=== PATIENT | female | born 1935 | race Caucasian/White ===

== ENCOUNTER 2017-06-24 09:19 | Inpatient (IN) | payer MEDICARE, BC ==
[2017-06-24] MEDS ORDERED: Sodium Chloride 0.9% 10 ML Syringe FLUSH PRN (09:34)
[2017-06-24] MEDS ORDERED: Sodium Chloride 0.9% 500 ML IV ONE ×2 (09:34→13:19)
[2017-06-24] MEDS ORDERED: Ondansetron 4 MG/2 ML SDV IVPUSH ONE (09:43)
--- NOTE | 2017-06-24 09:59 | EDM.PDOC ---
ED HPI GENERAL MEDICAL PROBLEM - General Chief Complaint: Gastrointestinal Problem Stated Complaint: [facility] Time Seen by Provider: 06/24/17 09:31 Source of Information: Reports: Patient, RN Notes Reviewed - History of Present Illness INITIAL COMMENTS - FREE TEXT/NARRATIVE: 82-year-old female comes in with generalized weakness, dizziness, diarrhea for the past 2 or 3 days, feeling very dehydrated. This apparently came on fairly suddenly 2 or 3 days ago. Couple of days prior to that she developed blotchy type hives of her lower extremities. She had been started on tramadol a few days prior to that for neck discomfort. The Tramadol was stopped. It was thought that maybe the diarrhea was secondary to the tramadol reaction as well but the diarrhea has not stopped. Every Time she eats or drinks she has more watery diarrhea. A family member states that this morning she had about 3 episodes of diarrhea just the past hour. SHe has no appetite. She has not been vomiting. No other family members are ill at this time. Chest pain or difficulty breathing. No fever or chills. - Related Data Allergies Allergy/AdvReac Type Severity Reaction Status Date / Time hydrochlorothiazide Allergy Itching Verified 06/24/17 09:27 Home Meds: Home Meds Levothyroxine [Synthroid] 100 mcg PO DAILY 06/24/17 [History] Lisinopril 20 mg PO DAILY 06/24/17 [History] Past Medical History HEENT History: Reports: Impaired Vision Cardiovascular History: Reports: Hypertension Endocrine/Metabolic History: Reports: Hypothyroidism Social & Family History - Tobacco Use Smoking Status *Q: Former Smoker Used Tobacco, but Quit: Yes Month Tobacco Last Used: 20 years ago - Caffeine Use Caffeine Use: Reports: Coffee - Recreational Drug Use Recreational Drug Use: No ED ROS GENERAL - Review of Systems Review Of Systems: See Below Constitutional: Denies: Fever, Chills, Diaphoresis HEENT: Reports: No Symptoms Respiratory: Reports: Shortness of Breath (Exertional) Cardiovascular: Reports: Lightheadedness (Especially when standing), Palpitations (Mild). Denies: Chest Pain GI/Abdominal: Reports: Abdominal Pain (Occasional cramps), Diarrhea (Frequent watery), Nausea. Denies: Vomiting Musculoskeletal: Reports: No Symptoms Skin: Reports: No Symptoms Neurological: Reports: Dizziness, Difficulty Walking (Due to weakness when standing), Weakness (Generalized). Denies: Numbness, Tingling ED EXAM, GI/ABD - Physical Exam Exam: See Below General Appearance: Alert, No Apparent Distress Eyes: Bilateral: Normal Appearance Throat/Mouth: Other (Oral mucosa is dry) Head: No: Facial Swelling Neck: Supple, Full Range of Motion Respiratory/Chest: No Respiratory Distress, Lungs Clear, Normal Breath Sounds Cardiovascular: Irregularly Irregular GI/Abdominal Exam: Soft, Non-Tender. No: Guarding Extremities: Normal Inspection. No: Pedal Edema, Leg Pain Neurological: Alert, No Motor/Sensory Deficits, Other (Patient does show signs of short term memory difficulty) Skin Exam: Warm, Dry, Normal Color EKG INTERPRETATION EKG Date: 06/24/17 Rhythm: A-Fib Rate (Beats/Min): 110 [place]: Normal QRS: Normal Course - Vital Signs Last Recorded V/S: Last Vital Signs Temp 96.9 F 06/24/17 09:24 Pulse 97 06/24/17 09:24 Resp 16 06/24/17 09:24 BP 89/50 L 06/24/17 09:24 Pulse Ox 97 06/24/17 09:24 - Orders/Labs/Meds Orders: Active Orders 24 hr Category Date Time Status EKG 12 Lead [EKG Documentation Completion] [RC] STAT Care 06/24/17 09:30 Active Peripheral IV Care [RC] . DIRECTED Care 06/24/17 09:35 Active Abdomen 2V AP Flat Upright [CR] Stat Exams 06/24/17 12:28 Taken Sodium Chloride 0.9% [Normal Saline] 500 ml Med 06/24/17 13:19 Ordered IV .BOLUS Sodium Chloride 0.9% [Saline Flush] Med 06/24/17 09:34 Active 10 ml FLUSH ASDIRECTED PRN Peripheral IV Insertion Adult [OM.PC] Stat Oth 06/24/17 09:34 Ordered Medication Orders Sodium Chloride (Normal Saline) 500 mls @ 999 mls/hr IV .BOLUS ONE Stop: 06/24/17 13:49 Sodium Chloride (Saline Flush) 10 ml FLUSH ASDIRECTED PRN PRN Reason: Keep Vein Open Last Admin: 06/24/17 09:56 Dose: 10 ml Labs: Laboratory Tests 06/24/17 06/24/17 06/24/17 Range/Units 09:50 09:50 09:50 WBC 14.26 H (3.98-10.04) K/mm3 RBC 5.44 H (3.98-5.22) M/mm3 Hgb 15.9 H (11.2-15.7) gm/L Hct 45.7 H (34.1-44.9) % MCV 84.0 (79.4-94.8) fl MCH 29.2 (25.6-32.2) pg MCHC 34.8 (32.2-35.5) g/dl RDW Std Deviation 49.5 H (36.4-46.3) fL Plt Count 141 L (182-369) K/mm3 MPV 11.4 (9.4-12.3) fl Neut % (Auto) 75.9 H (34.0-71.1) % Lymph % (Auto) 8.4 L (19.3-51.7) % [place] % (Auto) 5.8 (4.7-12.5) % Eos % (Auto) 9.2 H (0.7-5.8) Baso % (Auto) 0.7 (0.1-1.2) % Neut # (Auto) 10.82 H (1.56-6.13) K/mm3 Lymph # (Auto) 1.20 (1.18-3.74) K/mm3 [place] # (Auto) 0.83 H (0.24-0.36) K/mm3 Eos # (Auto) 1.31 H (0.04-0.36) K/mm3 Baso # (Auto) 0.10 H (0.01-0.08) K/mm3 Manual Slide Review Abnormal smear PT 13.6 H (8.0-13.0) SECONDS INR 1.23 APTT 33 (22-36) SECONDS Sodium 128 L (136-145) mEq/L Potassium 4.2 (3.5-5.1) mEq/L Chloride 95 L (98-107) mEq/L Carbon Dioxide 17 L (21-32) mEq/L Anion Gap 20.2 H (5-15) BUN 74 H (7-18) mg/dL Creatinine 2.6 H (0.55-1.02) mg/dL Est Cr Clr Drug Dosing 13.98 mL/min Estimated GFR (MDRD) 18 (>60) mL/min BUN/Creatinine Ratio 28.5 H (14-18) Glucose 213 H (83-115) mg/dL Lactic Acid (0.4-2.0) mmol/L Calcium 8.6 (8.5-10.1) mg/dL Total Bilirubin 0.3 (0.2-1.0) mg/dL AST 9 L (15-37) U/L ALT 14 (14-59) U/L Alkaline Phosphatase 99 (46-116) U/L Total Protein 6.7 (6.4-8.2) g/dl Albumin 2.6 L (3.4-5.0) g/dl Globulin 4.1 gm/dL Albumin/Globulin Ratio 0.6 L (1-2) 06/24/17 Range/Units 10:15 WBC (3.98-10.04) K/mm3 RBC (3.98-5.22) M/mm3 Hgb (11.2-15.7) gm/L Hct (34.1-44.9) % MCV (79.4-94.8) fl MCH (25.6-32.2) pg MCHC (32.2-35.5) g/dl RDW Std Deviation (36.4-46.3) fL Plt Count (182-369) K/mm3 MPV (9.4-12.3) fl Neut % (Auto) (34.0-71.1) % Lymph % (Auto) (19.3-51.7) % [place] % (Auto) (4.7-12.5) % Eos % (Auto) (0.7-5.8) Baso % (Auto) (0.1-1.2) % Neut # (Auto) (1.56-6.13) K/mm3 Lymph # (Auto) (1.18-3.74) K/mm3 [place] # (Auto) (0.24-0.36) K/mm3 Eos # (Auto) (0.04-0.36) K/mm3 Baso # (Auto) (0.01-0.08) K/mm3 Manual Slide Review PT (8.0-13.0) SECONDS INR APTT (22-36) SECONDS Sodium (136-145) mEq/L Potassium (3.5-5.1) mEq/L Chloride (98-107) mEq/L Carbon Dioxide (21-32) mEq/L Anion Gap (5-15) BUN (7-18) mg/dL Creatinine (0.55-1.02) mg/dL Est Cr Clr Drug Dosing mL/min Estimated GFR (MDRD) (>60) mL/min BUN/Creatinine Ratio (14-18) Glucose (83-115) mg/dL Lactic Acid 2.2 H (0.4-2.0) mmol/L Calcium (8.5-10.1) mg/dL Total Bilirubin (0.2-1.0) mg/dL AST (15-37) U/L ALT (14-59) U/L Alkaline Phosphatase (46-116) U/L Total Protein (6.4-8.2) g/dl Albumin (3.4-5.0) g/dl Globulin gm/dL Albumin/Globulin Ratio (1-2) Meds: Medications Generic Name Dose Route Start Last Admin Trade Name Freq PRN Reason Stop Dose Admin Sodium Chloride 500 mls @ 999 mls/hr 06/24/17 13:19 Normal Saline IV 06/24/17 13:49 .BOLUS ONE Sodium Chloride 10 ml 06/24/17 09:34 06/24/17 09:56 Saline Flush FLUSH 10 ml ASDIRECTED PRN Administration Keep Vein Open Discontinued Medications Generic Name Dose Route Start Last Admin Trade Name Freq PRN Reason Stop Dose Admin Sodium Chloride 500 mls @ 999 mls/hr 06/24/17 09:34 06/24/17 09:55 Normal Saline IV 06/24/17 10:04 999 mls/hr .BOLUS ONE Administration Ondansetron HCl 4 mg 06/24/17 09:43 06/24/17 09:55 Zofran IVPUSH 06/24/17 09:44 4 mg ONETIME ONE Administration - Re-Assessments/Exams Free Text/Narrative Re-Assessment/Exam: 06/24/17 12:12. Labs have come back showing that she is moderately dehydrated as expected with BUN/creatinine anion gap all elevated see labs for details. She 's not had further diarrhea while here in the ED so far that I'm aware of. However we have also not given her anything to eat or drink. We have given 1 L normal saline. Will continue normal saline at 150 per hour. Lactic acid is mildly elevated at 2.2. With her advanced age, moderately severe dehydration, renal insuffiency, worsening GFR, she is not a candidate to go home. She also has hyponatremia. The atrial fibrillation with RVR that she initially presented with has resolved. About 40 minutes ago when I did go into the room to check on her she was in a sinus rhythm eats currently running in the 80s. Her blood pressure had improved up to 110 systolic but now is back into the mid 90s systolic. We are giving further IV fluid. I am going to check flat and upright abdomen prior to admission. Departure - Departure Time of Disposition: 13:19 Disposition: Home, Self-Care 01 Condition: Fair Clinical Impression: Diarrhea, Dehydration, Acute renal insufficiency, Hyponatremia Hypotension Qualifiers: Hypotension type: unspecified hypotension type Qualified Code(s): I95.9 - Hypotension, unspecified - Discharge Information Referrals: Ethel Jarquin PA-C [Primary Care Provider] - Forms: ED Department Discharge ED Communication - Discussed Case With (1) Discussed Case With (1): Admitting Provider (Dr Knapp, decision to admit at about 13:20) - My Orders Last 24 Hours: My Active Orders 06/24/17 09:30 EKG 12 Lead [EKG Documentation Completion] [RC] STAT 06/24/17 09:34 Sodium Chloride 0.9% [Saline Flush] 10 ml FLUSH ASDIRECTED PRN Peripheral IV Insertion Adult [OM.PC] Stat 06/24/17 09:35 Peripheral IV Care [RC] . DIRECTED 06/24/17 12:28 Abdomen 2V AP Flat Upright [CR] Stat 06/24/17 13:19 Sodium Chloride 0.9% [Normal Saline] 500 ml IV .BOLUS - Assessment/Plan Last 24 Hours: My Active Orders 06/24/17 09:30 EKG 12 Lead [EKG Documentation Completion] [RC] STAT 06/24/17 09:34 Sodium Chloride 0.9% [Saline Flush] 10 ml FLUSH ASDIRECTED PRN Peripheral IV Insertion Adult [OM.PC] Stat 06/24/17 09:35 Peripheral IV Care [RC] . DIRECTED 06/24/17 12:28 Abdomen 2V AP Flat Upright [CR] Stat 06/24/17 13:19 Sodium Chloride 0.9% [Normal Saline] 500 ml IV .BOLUS
--- NOTE | 2017-06-24 13:27 | PCM.HP ---
H&P History of Present Illness - General Date of Service: 06/24/17 Admit Problem/Dx: Watery Diarrhea Source of Information: Patient, Family, Old Records, Provider, RN Notes Reviewed , Significant Other History Limitations: Reports: Other (Memory Impairment) - History of Present Illness Initial Comments - Free Text/Narative: This is an 82-year-old white female with past medical history of impaired vision , chronic shortness of breath, hypertension, hypothyroidism, and memory impairment, who presents to emergency department with complaints of generalized weakness. Her chief complaint is associated with dizziness, watery diarrhea for the past 3 days and feeling of dehydration. Patient denies any recent travel. No unusual food or drink. She has not gone out camping or hiking. No sick contact and no antibiotic use in the past 90 days. She recently had taken tramadol for neck pain and right after that she developed blotchy type hives over her lower extremities. She felt this may have contributed to her diarrhea. Her last meal was last night with a piece of chicken drumstick and mashed potatoes with chocolate shakes. She has no trouble with those kinds of food in the past. Her appetite is decreased and currently she is nauseous but no vomiting. Patient describes her diarrhea as watery non- bloody, and non-fatty with foul smell. She has been having diarrhea at least 8- 10 times a day for the past 3 days. Today she only has 3 episodes. She denies any signs of systemic infections. Her initial workup in the emergency department shows a WBC of 14.26, RBC of 5.44 , hemoglobin of 15.9, hematocrit of 45.7, platelet of 141, neutrophils of 75.9% , lymphocyte of 8.4%, and eosinophils of 9.2%. Chemistry is remarkable for sodium of 128, chloride of 95, carbon dioxide of 17, anion gap of 20.2, BUN of 74, creatinine of 2.6, glucose of 213, lactic acid of 2.2, AST of 9, CRP of 6.8 and albumin of 2.6. Her abdominal x-ray shows no acute abnormal findings. Her initial blood pressure on presentation to the emergency department was documented at 84/52 mmHg. While in the emergency department she was also found to be in atrial fibrillation shortly but spontaneously converted back to sinus rhythm. Patient is being admitted for medical management of watery diarrhea. She is DNR/ DNI. - Related Data Allergies/Adverse Reactions: Allergies Allergy/AdvReac Type Severity Reaction Status Date / Time hydrochlorothiazide Allergy Itching Verified 06/24/17 09:27 Home Medications: Home Meds RX: Albuterol Sulfate [Proair Respiclick] 2 puff IH Q4HR PRN 06/24/17 [History] RX: Amylase/Lipase/Protease [Shreyas LOMAX 24,000 Unit] 2 units PO TIDMEALS 06/24/17 [History] RX: Ascorbic Acid [C-1000] 1,000 mg PO DAILY 06/24/17 [History] RX: Aspirin [Asher Chewable Aspirin] 81 mg PO DAILY 06/24/17 [History] RX: Budesonide/Formoterol Fumarate [Symbicort 160-4.5 Mcg Inhaler] 2 puff IH BID 06/24/17 [History] RX: Calcium Carbonate/Vitamin D3 [Caltrate 600 Plus D3 Tablet] 1 tab PO TID [History] RX: Donepezil [Aricept] 5 mg PO DAILY 06/24/17 [History] RX: Fluticasone Propionate [Flovent] 50 mcg IH BID 06/24/17 [History] RX: Levothyroxine [Synthroid] 100 mcg PO DAILY 06/24/17 [History] RX: Lisinopril 20 mg PO DAILY 06/24/17 [History] RX: Magnesium Oxide [Magnesium] 400 mg PO DAILY 06/24/17 [History] RX: Multivitamin [Daily Multiple Vitamin] 1 tab PO DAILY 06/24/17 [History] RX: Al[place]-3/DHA/Epa/Fish Oil [[place]-3 Fish Oil Softgel] 1 each PO DAILY [History] RX: Temazepam [Restoril] 7.5 mg PO BEDTIME PRN #14 cap 06/25/17 [Rx] Past Medical History HEENT History: Reports: Impaired Vision Cardiovascular History: Reports: Hypertension Endocrine/Metabolic History: Reports: Hypothyroidism Social & Family History - Tobacco Use Smoking Status *Q: Former Smoker Used Tobacco, but Quit: Yes Month Tobacco Last Used: 20 years ago - Caffeine Use Caffeine Use: Reports: Coffee - Recreational Drug Use Recreational Drug Use: No H&P Review of Systems - Review of Systems: Review Of Systems: See Below General: Denies: Fever, Chills, Weakness, Fatigue HEENT: Reports: No Symptoms Pulmonary: Reports: Shortness of Breath Cardiovascular: Reports: Palpitations, Lightheadedness. Denies: Chest Pain, Dyspnea on Exertion, Syncope, Claudication, Blood Pressure Problem Gastrointestinal: Reports: Abdominal Pain, Diarrhea, Nausea. Denies: Vomiting Genitourinary: Reports: No Symptoms Musculoskeletal: Reports: No Symptoms Skin: Denies: Cyanosis, Jaundice, Erythema Psychiatric: Reports: Confusion (baseline memory impairment). Denies: Depression, Anxiety, Hallucinations, Suicidal Ideation Neurological: Reports: Dizziness, Difficulty Walking, Weakness, Gait Disturbance. Denies: Numbness, Paresthesia, Seizure, Syncope, Tingling, Tremors , Trouble Speaking, Change in Speech Hematologic/Lymphatic: Reports: No Symptoms Immunologic: Reports: No Symptoms Exam - Exam Exam: See Below - Vital Signs Vital Signs: Last Vital Signs Temp 36.1 C 06/24/17 09:24 Pulse 97 06/24/17 09:24 Resp 16 06/24/17 09:24 BP 89/50 L 06/24/17 09:24 Pulse Ox 97 06/24/17 09:24 Weight: 53.07 kg - Exam General: Alert, Cooperative, Mild Distress HEENT: Conjunctiva Clear, EACs Clear, EOMI, Hearing Intact, Nares Patent, Normal Nasal Septum, Posterior Pharynx Clear, Pupils Equal, Pupils Reactive, Other (eyes are sunken). No: Mucosa Moist & [place] Neck: Supple, Trachea Midline, +2 Carotid Pulse wo Bruit, Full Range of Motion Lungs: Clear to Auscultation, Normal Respiratory Effort Cardiovascular: Regular Rate, Regular Rhythm GI/Abdominal Exam: Normal Bowel Sounds, Soft, Non-Tender, No Organomegaly, No Distention, No Abnormal Bruit, No Mass (Female) Exam: Deferred Rectal (Female) Exam: Deferred Back Exam: Normal Inspection, Decreased Range of Motion Extremities: Normal Inspection, Normal Range of Motion, Non-Tender, No Pedal Edema, Normal Capillary Refill Peripheral Pulses: 2+: Posterior Tibial (L), Posterior Tibial (R), Dorsalis Pedis (L), Dorsalis Pedis (R) Skin: Warm, Dry, Intact Neuro Extensive - Mental Status: Normal Cognition. No: Oriented x3, Memory Intact Neuro Extensive - Motor, Sensory, Reflexes: CN II-XII Intact, Normal Gait DTR: 2+: Patella (L), Patella (R) Psychiatric: Alert, Normal Affect, Normal Mood - Patient Data Lab Results Last 24 hrs: Laboratory Results - last 24 hr 06/24/17 06/24/17 06/24/17 Range/Units 09:50 09:50 09:50 WBC 14.26 H (3.98-10.04) K/mm3 RBC 5.44 H (3.98-5.22) M/mm3 Hgb 15.9 H (11.2-15.7) gm/L Hct 45.7 H (34.1-44.9) % MCV 84.0 (79.4-94.8) fl MCH 29.2 (25.6-32.2) pg MCHC 34.8 (32.2-35.5) g/dl RDW Std Deviation 49.5 H (36.4-46.3) fL Plt Count 141 L (182-369) K/mm3 MPV 11.4 (9.4-12.3) fl Neut % (Auto) 75.9 H (34.0-71.1) % Lymph % (Auto) 8.4 L (19.3-51.7) % [place] % (Auto) 5.8 (4.7-12.5) % Eos % (Auto) 9.2 H (0.7-5.8) Baso % (Auto) 0.7 (0.1-1.2) % Neut # (Auto) 10.82 H (1.56-6.13) K/mm3 Lymph # (Auto) 1.20 (1.18-3.74) K/mm3 [place] # (Auto) 0.83 H (0.24-0.36) K/mm3 Eos # (Auto) 1.31 H (0.04-0.36) K/mm3 Baso # (Auto) 0.10 H (0.01-0.08) K/mm3 Manual Slide Review Abnormal smear PT 13.6 H (8.0-13.0) SECONDS INR 1.23 APTT 33 (22-36) SECONDS Sodium 128 L (136-145) mEq/L Potassium 4.2 (3.5-5.1) mEq/L Chloride 95 L (98-107) mEq/L Carbon Dioxide 17 L (21-32) mEq/L Anion Gap 20.2 H (5-15) BUN 74 H (7-18) mg/dL Creatinine 2.6 H (0.55-1.02) mg/dL Est Cr Clr Drug Dosing 13.98 mL/min Estimated GFR (MDRD) 18 (>60) mL/min BUN/Creatinine Ratio 28.5 H (14-18) Glucose 213 H (83-115) mg/dL Lactic Acid (0.4-2.0) mmol/L Calcium 8.6 (8.5-10.1) mg/dL Total Bilirubin 0.3 (0.2-1.0) mg/dL AST 9 L (15-37) U/L ALT 14 (14-59) U/L Alkaline Phosphatase 99 (46-116) U/L Total Protein 6.7 (6.4-8.2) g/dl Albumin 2.6 L (3.4-5.0) g/dl Globulin 4.1 gm/dL Albumin/Globulin Ratio 0.6 L (1-2) 06/24/17 Range/Units 10:15 WBC (3.98-10.04) K/mm3 RBC (3.98-5.22) M/mm3 Hgb (11.2-15.7) gm/L Hct (34.1-44.9) % MCV (79.4-94.8) fl MCH (25.6-32.2) pg MCHC (32.2-35.5) g/dl RDW Std Deviation (36.4-46.3) fL Plt Count (182-369) K/mm3 MPV (9.4-12.3) fl Neut % (Auto) (34.0-71.1) % Lymph % (Auto) (19.3-51.7) % [place] % (Auto) (4.7-12.5) % Eos % (Auto) (0.7-5.8) Baso % (Auto) (0.1-1.2) % Neut # (Auto) (1.56-6.13) K/mm3 Lymph # (Auto) (1.18-3.74) K/mm3 [place] # (Auto) (0.24-0.36) K/mm3 Eos # (Auto) (0.04-0.36) K/mm3 Baso # (Auto) (0.01-0.08) K/mm3 Manual Slide Review PT (8.0-13.0) SECONDS INR APTT (22-36) SECONDS Sodium (136-145) mEq/L Potassium (3.5-5.1) mEq/L Chloride (98-107) mEq/L Carbon Dioxide (21-32) mEq/L Anion Gap (5-15) BUN (7-18) mg/dL Creatinine (0.55-1.02) mg/dL Est Cr Clr Drug Dosing mL/min Estimated GFR (MDRD) (>60) mL/min BUN/Creatinine Ratio (14-18) Glucose (83-115) mg/dL Lactic Acid 2.2 H (0.4-2.0) mmol/L Calcium (8.5-10.1) mg/dL Total Bilirubin (0.2-1.0) mg/dL AST (15-37) U/L ALT (14-59) U/L Alkaline Phosphatase (46-116) U/L Total Protein (6.4-8.2) g/dl Albumin (3.4-5.0) g/dl Globulin gm/dL Albumin/Globulin Ratio (1-2) Result Diagrams: 06/25/17 06:57 06/25/17 06:57 EKG INTERPRETATION EKG Date: 06/24/17 Time: 13:57 Rhythm: Other (Sinus Rhythm) Rate (Beats/Min): 76 [place]: RAD-Right [place] Deviation P-Wave: Present ST-T: Elevated (Mild ST elevation in inferior lead and Q wave in V1-V2) Comparison: Change From Previous EKG *Q Meaningful Use (ADM) - VTE *Q VTE Criteria *Q: - Stroke *Q Stroke Criteria *Q: - AMI *Q AMI Criteria *Q: Problem List Initiated/Reviewed/Updated: Yes Orders Last 24hrs: Active Orders 24 hr Category Date Time Status EKG 12 Lead [EKG Documentation Completion] [RC] STAT Care 06/24/17 09:30 Active Peripheral IV Care [RC] . DIRECTED Care 06/24/17 09:35 Active Abdomen 2V AP Flat Upright [CR] Stat Exams 06/24/17 12:28 Taken Sodium Chloride 0.9% [Normal Saline] 500 ml Med 06/24/17 13:19 Active IV .BOLUS Sodium Chloride 0.9% [Saline Flush] Med 06/24/17 09:34 Active 10 ml FLUSH ASDIRECTED PRN Peripheral IV Insertion Adult [OM.PC] Stat Oth 06/24/17 09:34 Ordered Medication Orders Sodium Chloride (Normal Saline) 500 mls @ 999 mls/hr IV .BOLUS ONE Stop: 06/24/17 13:49 Last Admin: 06/24/17 13:22 Dose: 999 mls/hr Sodium Chloride (Saline Flush) 10 ml FLUSH ASDIRECTED PRN PRN Reason: Keep Vein Open Last Admin: 06/24/17 09:56 Dose: 10 ml Assessment/Plan Comment:: Assessment/Plan: Acute: Diarrhea: Food Poisoning vs Viral Illness - Watery Diarrhea 8-10/day fro 3 days, non bloody, no clots or fats - Today had 3 episode - No recent travel, no unusual drink/food, had no gone out camping or hiking - No sick contact - No antibiotic use in the past 90 days - Last meal drumstick and mash potato with chocolate shake - No hx/o C. Diff infection - C. diff testing and stool study if she continues to have diarrhea - Supportive care and IV hydration Symptomatic Hypotension - Dizzy and lightheaded - 84/52 mmHg documented on admission - Likely 2/2 Volume Depletion from Diarrhea - Received 2L of fluids IV bolus in ED - Continue IV Hydration Non-Oliguric Renal Failure - BUN/Cr 74 and 2.6 respectively - Likely 2/2 Volume Depletion from Diarrhea - Avoid Nephrotoxic agent - Patient is adequately hydrating - She is voiding real good - Will monitor output Mild Hyponatremia - Na at 128 - 2/2 GI loss and poor intake - IV hydration with NS - Repeat level later this afternoon Generalized Weakness - 2/2 Above and No nutritional intake - PT/OT consult - Will start clear diet advanced as tolerated Mild Leukocytosis - WBC 14.6 and CRP is 6.8 - Likely reactive leukocytosis - She is afebrile and does not look toxic - Abx not indicated - Will monitor S/p PAF - Spontaneously resolved - Initial EKG in ED shows Atrial Fibrillation with HR of 110 - She is now in SR Chronic: Impaired Vision HTN SOB hypothyroidism 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
[2017-06-24] MEDS ORDERED: Metoprolol Tartrate 5 MG/5 ML SDV IVPUSH PRN (13:35)
[2017-06-24] MEDS ORDERED: hydrALAZINE 20 MG/ML SDV IVPUSH PRN (13:35)
[2017-06-24] MEDS ORDERED: LORazepam 2 MG/ML MDV IVPUSH PRN (13:35)
--- NOTE | 2017-06-24 13:43 | CR ---
Abdomen: Supine and upright views of the abdomen were obtained. Gas noted within small bowel and colon which is felt to be within normal limits at this time. Bony structures appear within normal limits for the patient's age. No free air is seen. No abnormal calcifications or soft tissue abnormality is seen. Impression: 1. Nothing acute seen on two-view abdominal study. Diagnostic code #1
[2017-06-24] MEDS ORDERED: Sodium Chloride 0.9% 1,000 ML IV SCH (13:45)
[2017-06-24] MEDS ORDERED: Acetaminophen 325 MG Tab PO PRN (13:46)
[2017-06-24] MEDS ORDERED: HYDROmorphone 0.5 MG/0.5 ML Syringe IVPUSH PRN (13:46)
[2017-06-24] MEDS ORDERED: Acetaminophen/HYDROcodone 325-5 MG Tab PO PRN (13:46)
[2017-06-24] MEDS ORDERED: Albuterol/Ipratropium 3.0-0.5 MG/3 ML Neb Soln NEB PRN (13:46)
[2017-06-24] MEDS ORDERED: Promethazine 12.5 MG in Sodium Chloride 0.9% 50 ML IV PRN (13:46)
[2017-06-24] MEDS ORDERED: LORazepam 2 MG/ML MDV IV PRN (13:46)
[2017-06-24] MEDS: Levothyroxine 100 MCG Tab PO SCH (15:16)
[2017-06-24] MEDS ORDERED: Sodium Chloride 0.9% 1,000 ML IV ONE (15:18)
[2017-06-24] MEDS ORDERED: Albuterol 6.7 GM Inhaler INH PRN (15:48)
[2017-06-24] MEDS ORDERED: LORazepam 2 MG/ML MDV IVPUSH ONE ×2 (15:50→21:00)
[2017-06-24] MEDS ORDERED: Pneumococcal Polyvalent-23 Vaccine 0.5 ML SDV IM ONE (16:00)
[2017-06-24] MEDS: Dextrose 5%-0.9% NaCl 1,000 ML IV SCH (16:31)
[2017-06-24] MEDS: Calcium Carbonate/Vitamin D3 1500 MG-200 Units Tab PO SCH ×2 (16:32→17:12)
[2017-06-24] MEDS: Formoterol/Mometasone 200-5 MCG 8.8 GM Inhaler IH SCH (20:21)
[2017-06-24] MEDS ORDERED: Non-Formulary Medication 1 Each (Fluticasone Propionate [Flovent] 50 MCG) IH SCH (21:00)
[2017-06-24] MEDS ORDERED: Temazepam 7.5 MG Cap PO PRN (21:00)
[2017-06-25] MEDS: Dextrose 5%-0.9% NaCl 1,000 ML IV SCH (02:37)
[2017-06-25] MEDS: Calcium Carbonate/Vitamin D3 1500 MG-200 Units Tab PO SCH ×3 (06:23→16:28)
[2017-06-25] MEDS: Levothyroxine 100 MCG Tab PO SCH (06:23)
[2017-06-25] MEDS: Formoterol/Mometasone 200-5 MCG 8.8 GM Inhaler IH SCH (06:29)
[2017-06-25] MEDS: PROTEASE PO SCH ×4 (08:15→18:46)
[2017-06-25] MEDS: AMYLASE PO SCH ×4 (08:15→18:46)
[2017-06-25] MEDS: LIPASE PO SCH ×4 (08:15→18:46)
[2017-06-25] MEDS ORDERED: Fish Oil/Omega-3 Fatty Acids 1 Gm Cap PO SCH (09:00)
[2017-06-25] MEDS ORDERED: Multivitamins,Therapeutic Tab PO SCH (09:00)
[2017-06-25] MEDS ORDERED: Aspirin 81 MG Tab.Chew PO SCH (09:00)
[2017-06-25] MEDS ORDERED: Ascorbic Acid 500 MG Tab PO SCH (09:00)
[2017-06-25] MEDS ORDERED: Magnesium Oxide 400 MG Tab PO SCH (09:00)
[2017-06-25] MEDS ORDERED: Donepezil 10 MG Tab PO SCH (09:00)
[2017-06-25] MEDS ORDERED: Diphtheria,Pertussis(Acell),Tetanus Vaccine 0.5 ML SDV IM ONE (13:30)
[2017-06-25 16:24] VITALS: BP 110/88
--- NOTE | 2017-06-25 18:35 | PCM.DCSUM1 ---
Discharge Summary - Hospital Course Brief History: This is an 82-year-old white female with past medical history of impaired vision, chronic shortness of breath, hypertension, hypothyroidism, and memory impairment, who presents to emergency department with complaints of generalized weakness. She was admitted for medical management of watery diarrhea. - Discharge Data Discharge Date: 06/25/17 Discharge Disposition: Home, Self-Care 01 Condition: Good - Discharge Diagnosis/Problem(s) (1) RAMON (acute kidney injury) SNOMED Code(s): 17280978 ICD Code: N17.9 - ACUTE KIDNEY FAILURE, UNSPECIFIED Status: Acute (2) Leukocytosis SNOMED Code(s): 201831627, 838528211 ICD Code: D72.829 - ELEVATED WHITE BLOOD CELL COUNT, UNSPECIFIED Status: Acute (3) Generalized weakness SNOMED Code(s): 30374891 ICD Code: R53.1 - WEAKNESS Status: Resolved (4) Dehydration SNOMED Code(s): 96629949 ICD Code: E86.0 - DEHYDRATION Status: Resolved (5) Diarrhea SNOMED Code(s): 35385501 ICD Code: R19.7 - DIARRHEA, UNSPECIFIED Status: Resolved (6) Hyponatremia SNOMED Code(s): 06833303 ICD Code: E87.1 - HYPO-OSMOLALITY AND HYPONATREMIA Status: Resolved (7) Hypotension SNOMED Code(s): 41354402 ICD Code: I95.9 - HYPOTENSION, UNSPECIFIED Status: Acute Qualifiers: Hypotension type: unspecified hypotension type Qualified Code(s): I95.9 - Hypotension, unspecified (8) Food poisoning SNOMED Code(s): 70802177 ICD Code: T62.91XA - TOXIC EFFECT OF UNSP NOXIOUS SUB EATEN FOOD, ACC, INIT Status: Resolved Qualifiers: Encounter type: initial encounter - Patient Summary/Data Operative Procedure(s) Performed: None Complications: None Labs Pending at D/C: None Hospital Course: Patient was primarily admitted for medical management of watery diarrhea which we felt secondary to food poisoning versus viral illness. She received adequate volume resuscitative measures and supportive care to improve her symptom. As a result, her blood pressures, renal panel and electrolytes improved significantly. Her hospital course was uncomplicated. The rest of her chronic medical illness remained stable during this admission. Patient is now ready for discharge. She will go home with low-dose restoril fro insomnia per patient and daughter's request. She was advised to start fatty or greasy meal in a few days. She was further advised to follow-up with her primary care in 1-2 weeks. The patient expressed understanding and in agreement with the plans as discussed above. All questions were answered. - Patient Instructions Diet: Usual Diet as Tolerated Activity: As Tolerated Driving: Do Not Drive Showering/Bathing: May Shower Notify Provider of: Fever, Increased Pain, Nausea and/or Vomiting Other/Special Instructions: - Please take all medications as directed. - Start greasy or fatty meal in 3 days. - Resume routine daily activities. - Follow up with your doctor in 1-2 weeks - Discharge Plan Prescriptions/Med Rec: Temazepam [Restoril] 7.5 mg PO BEDTIME PRN #14 cap PRN Reason: Insomnia Home Medications: Home Meds Albuterol Sulfate [Proair Respiclick] 2 puff IH Q4HR PRN 06/24/17 [History] Amylase/Lipase/Protease [Shreyas DR 24,000 Unit] 2 units PO TIDMEALS 06/24/17 [ History] Ascorbic Acid [C-1000] 1,000 mg PO DAILY 06/24/17 [History] Aspirin [Asher Chewable Aspirin] 81 mg PO DAILY 06/24/17 [History] Budesonide/Formoterol Fumarate [Symbicort 160-4.5 Mcg Inhaler] 2 puff IH BID [History] Calcium Carbonate/Vitamin D3 [Caltrate 600 Plus D3 Tablet] 1 tab PO TID [History] Donepezil [Aricept] 5 mg PO DAILY 06/24/17 [History] Fluticasone Propionate [Flovent] 50 mcg IH BID 06/24/17 [History] Levothyroxine [Synthroid] 100 mcg PO DAILY 06/24/17 [History] Lisinopril 20 mg PO DAILY 06/24/17 [History] Magnesium Oxide [Magnesium] 400 mg PO DAILY 06/24/17 [History] Multivitamin [Daily Multiple Vitamin] 1 tab PO DAILY 06/24/17 [History] [place]-3/DHA/Epa/Fish Oil [[place]-3 Fish Oil Softgel] 1 each PO DAILY 06/24/17 [ History] Temazepam [Restoril] 7.5 mg PO BEDTIME PRN #14 cap 06/25/17 [Rx] Patient Handouts: Diarrhea, Adult, Hyponatremia, [id number], Dehydration, Adult, [id number], Chronic Kidney Disease, Rehydration, Elderly Referrals: Ethel Jarquin PA-C [Primary Care Provider] - 06/29/17 11:15 am (appointment at [facility], come 15 minutes prior to the appointment) - Discharge Summary/Plan Comment DC Time >30 min.: Yes (45 mins) Discharge Summary/Plan Comment: Discharge to Home Due to listed medical diagnoses in this report, patient is in need of skilled home services for nursing and physical therapy. Patient is homebound due to weakness and will benefit from services above to increase her level of independence and functioning. Patient will be followed outpatient by her PCP, Ethel Jarquin. - General Info Date of Service: 06/25/17 Subjective Update: Follow up Functional Status: Reports: Pain Controlled, Tolerating Diet, Ambulating, Urinating. Denies: New Symptoms - Review of Systems General: Denies: Fever, Weakness, Fatigue, Malaise, Chills HEENT: Reports: No Symptoms Pulmonary: Denies: Shortness of Breath Cardiovascular: Denies: Chest Pain Gastrointestinal: Denies: Abdominal Pain, Difficulty Swallowing, Nausea Genitourinary: Reports: No Symptoms Musculoskeletal: Reports: No Symptoms Skin: Denies: Cyanosis, Mottled Neurological: Denies: Dizziness, Difficulty Walking, Weakness, Gait Disturbance Psychiatric: Reports: Confusion (Baseline Memory Impairment). Denies: Depression, Mood Lability, Anxiety, Hallucinations, Suicidal Ideation - Patient Data Vitals - Most Recent: Last Vital Signs Temp 37.0 C 06/25/17 16:22 Pulse 72 06/25/17 16:22 Resp 14 06/25/17 16:22 BP 110/88 06/25/17 16:22 Pulse Ox 99 06/25/17 16:22 Weight - Most Recent: 55.973 kg I&O - Last 24 hours: Intake & Output 06/25/17 06/25/17 06/25/17 06:59 14:59 22:59 Intake Total 2000 480 300 Output Total 850 2100 Balance 1150 480 -1800 Lab Results - Last 24 hrs: Laboratory Results - last 24 hr 06/24/17 06/25/17 06/25/17 Range/Units 19:00 06:57 06:57 WBC 12.02 H (3.98-10.04) K/mm3 RBC 4.23 (3.98-5.22) M/mm3 Hgb 12.2 (11.2-15.7) gm/L Hct 36.3 (34.1-44.9) % MCV 85.8 (79.4-94.8) fl MCH 28.8 (25.6-32.2) pg MCHC 33.6 (32.2-35.5) g/dl RDW Std Deviation 50.3 H (36.4-46.3) fL Plt Count 112 L (182-369) K/mm3 MPV 11.2 (9.4-12.3) fl Neut % (Auto) 42.6 (34.0-71.1) % Lymph % (Auto) 15.8 L (19.3-51.7) % [place] % (Auto) 7.5 (4.7-12.5) % Eos % (Auto) 32.6 H (0.7-5.8) Baso % (Auto) 0.3 (0.1-1.2) % Neut # (Auto) 5.12 (1.56-6.13) K/mm3 Lymph # (Auto) 1.90 (1.18-3.74) K/mm3 [place] # (Auto) 0.90 H (0.24-0.36) K/mm3 Eos # (Auto) 3.92 H (0.04-0.36) K/mm3 Baso # (Auto) 0.04 (0.01-0.08) K/mm3 Manual Slide Review Abnormal smear Sodium 132 L 136 (136-145) mEq/L Potassium 3.8 3.6 (3.5-5.1) mEq/L Chloride 103 107 (98-107) mEq/L Carbon Dioxide 18 L 20 L (21-32) mEq/L Anion Gap 14.8 12.6 (5-15) BUN 66 H 50 H (7-18) mg/dL Creatinine 1.8 H 1.3 H (0.55-1.02) mg/dL Est Cr Clr Drug Dosing 19.93 27.60 mL/min Estimated GFR (MDRD) 27 39 (>60) mL/min BUN/Creatinine Ratio 36.7 H 38.5 H (14-18) Glucose 166 H 125 H (83-115) mg/dL Lactic Acid (0.4-2.0) mmol/L Calcium 7.7 L 7.8 L (8.5-10.1) mg/dL Magnesium 2.1 (1.8-2.4) mg/dl C-Reactive Protein 3.5 H* (<1.0) mg/dL 06/25/17 06/25/17 Range/Units 06:57 07:01 WBC (3.98-10.04) K/mm3 RBC (3.98-5.22) M/mm3 Hgb (11.2-15.7) gm/L Hct (34.1-44.9) % MCV (79.4-94.8) fl MCH (25.6-32.2) pg MCHC (32.2-35.5) g/dl RDW Std Deviation (36.4-46.3) fL Plt Count (182-369) K/mm3 MPV (9.4-12.3) fl Neut % (Auto) (34.0-71.1) % Lymph % (Auto) (19.3-51.7) % [place] % (Auto) (4.7-12.5) % Eos % (Auto) (0.7-5.8) Baso % (Auto) (0.1-1.2) % Neut # (Auto) (1.56-6.13) K/mm3 Lymph # (Auto) (1.18-3.74) K/mm3 [place] # (Auto) (0.24-0.36) K/mm3 Eos # (Auto) (0.04-0.36) K/mm3 Baso # (Auto) (0.01-0.08) K/mm3 Manual Slide Review Sodium (136-145) mEq/L Potassium (3.5-5.1) mEq/L Chloride (98-107) mEq/L Carbon Dioxide (21-32) mEq/L Anion Gap (5-15) BUN (7-18) mg/dL Creatinine (0.55-1.02) mg/dL Est Cr Clr Drug Dosing mL/min Estimated GFR (MDRD) (>60) mL/min BUN/Creatinine Ratio (14-18) Glucose (83-115) mg/dL Lactic Acid 1.8 (0.4-2.0) mmol/L Calcium (8.5-10.1) mg/dL Magnesium 2.1 (1.8-2.4) mg/dl C-Reactive Protein (<1.0) mg/dL Med Orders - Current: Current Medications Acetaminophen (Tylenol) 650 mg PO Q4H PRN PRN Reason: Pain (Mild 1-3)/fever Hydrocodone Bitart/Acetaminophen ([place] 325-5 Mg) 1 tab PO Q4H PRN PRN Reason: Pain (moderate 4-6) Albuterol (Proventil Hfa) 0 gm INH Q4H PRN PRN Reason: Shortness of Breath Albuterol/Ipratropium (Duoneb 3.0-0.5 Mg/3 Ml) 3 ml NEB Q4H PRN PRN Reason: Shortness Of Breath/wheezing Ascorbic Acid (Vitamin C) 1,000 mg PO DAILY [facility] Last Admin: 06/25/17 08:14 Dose: 1,000 mg Aspirin (Aspirin) 81 mg PO DAILY [facility] Last Admin: 06/25/17 08:14 Dose: 81 mg Calcium Carbonate (Calcium Carbonate/Vitamin D 1500 Mg-200 Unit) 1 tab PO TIDMEALS [facility] Last Admin: 06/25/17 16:28 Dose: 1 tab Donepezil HCl (Aricept) 5 mg PO DAILY [facility] Last Admin: 06/25/17 08:14 Dose: 5 mg Fish Oil (Fish Oil) 1 gm PO DAILY [facility] Last Admin: 06/25/17 08:15 Dose: 1 gm Hydralazine HCl (Apresoline) 10 mg IVPUSH Q4H PRN PRN Reason: Hypertension Hydromorphone HCl (Dilaudid) 0.25 mg IVPUSH Q4H PRN PRN Reason: Pain (severe 7-10) Promethazine HCl 12.5 mg/ (Sodium Chloride) 50.5 mls @ 100 mls/hr IV Q6H PRN PRN Reason: Nausea/Vomiting Dextrose/Sodium Chloride (Dextrose 5%-Normal Saline) 1,000 mls @ 100 mls/hr IV ASDIRECTED [facility] Last Admin: 06/25/17 02:37 Dose: 100 mls/hr Levothyroxine Sodium (Synthroid) 100 mcg PO ACBREAKFAST [facility] Last Admin: 06/25/17 06:23 Dose: 100 mcg Lorazepam (Ativan) 2 mg IVPUSH Q4H PRN PRN Reason: Seizures Lorazepam (Ativan) 0.25 mg IV Q6H PRN PRN Reason: Anxiety Magnesium Oxide (Magnesium Oxide) 400 mg PO DAILY [facility] Last Admin: 06/25/17 08:14 Dose: 400 mg Magnesium Sulfate (Pharmacy To Dose - Magnesium Replacement) 0 dose .XX ASDIRECTED PRN PRN Reason: RX TO WATCH MAG LEVELS Metoprolol Tartrate (Lopressor) 5 mg IVPUSH Q4H PRN PRN Reason: Tachycardia Mometasone Furoate/Formoterol Fumar (Dulera 200-5 Mcg) 2 puff IH BIDRT [facility] Last Admin: 06/25/17 06:29 Dose: 2 puff Multivitamins (Thera) 1 each PO DAILY [facility] Last Admin: 06/25/17 08:14 Dose: 1 each Amylase/Lipase/ (Protease Capsule) 0 each PO TIDMEALS [facility] Last Admin: 06/25/17 16:23 Dose: Not Given Potassium Chloride (Pharmacy To Dose - Potassium Replacement) 0 dose .XX ASDIRECTED PRN PRN Reason: RX TO WATCH K LEVELS Sodium Chloride (Saline Flush) 10 ml FLUSH ASDIRECTED PRN PRN Reason: Keep Vein Open Last Admin: 06/24/17 09:56 Dose: 10 ml Temazepam (Restoril) 7.5 mg PO BEDTIME PRN PRN Reason: Sleep Last Admin: 06/24/17 20:15 Dose: 7.5 mg Discontinued Medications Diphtheria/Tetanus/Acell Pertussis (Adacel) 0.5 ml IM .ONCE ONE Stop: 06/25/17 13:31 Sodium Chloride (Normal Saline) 500 mls @ 999 mls/hr IV .BOLUS ONE Stop: 06/24/17 10:04 Last Admin: 06/24/17 09:55 Dose: 999 mls/hr Sodium Chloride (Normal Saline) 500 mls @ 999 mls/hr IV .BOLUS ONE Stop: 06/24/17 13:49 Last Admin: 06/24/17 13:22 Dose: 999 mls/hr Sodium Chloride (Normal Saline) 1,000 mls @ 125 mls/hr IV ASDIRECTED [facility] Sodium Chloride (Normal Saline) 1,000 mls @ 999 mls/hr IV ONETIME ONE Stop: 06/24/17 16:18 Last Admin: 06/24/17 15:18 Dose: 999 mls/hr Lorazepam (Ativan) 1 mg IVPUSH BEDTIME ONE PRN Reason: Protocol Stop: 06/24/17 15:51 Last Admin: 06/24/17 17:11 Dose: Not Given Lorazepam (Ativan) 1 mg IVPUSH BEDTIME ONE Stop: 06/24/17 21:01 Last Admin: 06/24/17 20:15 Dose: 1 mg Non-Formulary Medication (Fluticasone Propionate [Flovent]) 50 mcg IH BID PEG Ondansetron HCl (Zofran) 4 mg IVPUSH ONETIME ONE Stop: 06/24/17 09:44 Last Admin: 06/24/17 09:55 Dose: 4 mg Pneumococcal Polyvalent Vaccine (Pneumovax 23) 0.5 ml IM .ONCE ONE Stop: 06/24/17 16:01 - Exam General: Reports: Alert, Cooperative, No Acute Distress HEENT: Reports: Pupils Equal, Pupils Reactive, EOMI, Mucous Membr. Moist/Struble Neck: Reports: Supple, Trachea Midline, No JVD Lungs: Reports: Clear to Auscultation, Normal Respiratory Effort Cardiovascular: Reports: Regular Rate, Regular Rhythm GI/Abdominal Exam: Normal Bowel Sounds, Soft, Non-Tender, No Organomegaly, No Distention, No Abnormal Bruit, No Mass (Female) Exam: Deferred Rectal (Female) Exam: Deferred Back Exam: Reports: Normal Inspection Extremities: Normal Inspection, Normal Range of Motion, Non-Tender, No Pedal Edema, Normal Capillary Refill Skin: Reports: Warm, Dry, Intact Neurological: Reports: No New Focal Deficit Psy/Mental Status: Reports: Alert, Normal Affect, Normal Mood *Q Meaningful Use (DIS) - VTE *Q VTE Criteria *Q: - Stroke *Q Stroke Criteria *Q: - AMI *Q AMI Criteria *Q:
== END 2017-06-25 20:01 | disposition home or self-care (01) | DRG 866 ==
LOC: JD.ED 09:19 → UNDOADMIN 14:00 → JD.MS 14:00 → UNDODISIN 06-25 20:01
PROVIDERS: ADMIT Internal Medicine; ATTEND Internal Medicine
PROC: 3E0234Z Introduction of Serum, Toxoid and Vaccine into Muscle, Percutaneous Approach (ICD-10-PCS; principal; 2017-06-25)
DX: B34.9 Viral infection, unspecified (principal); E87.1 Hypo-osmolality and hyponatremia; N17.9 Acute kidney failure, unspecified; T62.91XA Toxic effect of unspecified noxious substance eaten as food, accidental (unintentional), initial encounter; R19.7 Diarrhea, unspecified; E86.0 Dehydration; R53.1 Weakness; I95.9 Hypotension, unspecified; N28.9 Disorder of kidney and ureter, unspecified; D72.829 Elevated white blood cell count, unspecified; H54.7 Unspecified visual loss; I10 Essential (primary) hypertension; E03.9 Hypothyroidism, unspecified; R41.3 Other amnesia; R06.02 Shortness of breath; Z79.899 Other long term (current) drug therapy; Z87.891 Personal history of nicotine dependence; Z88.8 Allergy status to other drugs, medicaments and biological substances; Z23 Encounter for immunization
CPT/HCPCS: 36415; 74020; 80053; 83605; 83735; 85025; 85610; 85730; 86140; 93005 ×3; 96361; 96374; 99285; J2405; J7040 ×2; J7050; 80048; 90715; 90732; 94640; 94664; 97116-GP; 97162-GP; 97165-GO; A9270-GY; G0009; J2060; J7042

== ENCOUNTER 2023-08-24 16:15 | Emergency (ER) | payer MEDICARE, BC ==
[2023-08-24] MEDS ORDERED: Diphtheria,Pertussis(Acell),Tetanus Vaccine 0.5 ML Syringe IM ONE (16:46)
[2023-08-24] MEDS: Lidocaine 1% 10 ML MDV ONE ×2 (18:00)
[2023-08-24] MEDS ORDERED: Lidocaine 1% 10 ML MDV INJECT ONE (18:00)
[2023-08-24 18:59] VITALS: BP 136/64; PULSE 76
== END 2023-08-24 19:20 | disposition home or self-care (01) ==
LOC: JD.ED 16:15
DX: S01.01XA Laceration without foreign body of scalp, initial encounter (principal); I10 Essential (primary) hypertension; E03.9 Hypothyroidism, unspecified; Z23 Encounter for immunization; Z88.1 Allergy status to other antibiotic agents; Z88.2 Allergy status to sulfonamides; Z88.8 Allergy status to other drugs, medicaments and biological substances; Z79.82 Long term (current) use of aspirin; Z79.899 Other long term (current) drug therapy; W18.30XA Fall on same level, unspecified, initial encounter
CPT/HCPCS: 12002; 12013; 70450; 70450-26; 90471; 90715; 99282; 99284-25; J3490